=== PATIENT | male | born 1985 | race Caucasian/White ===

== ENCOUNTER 2019-06-28 18:29 | Emergency (ER) | payer BC, OTHER ==
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
[2019-06-28 18:47] VITALS: BP 140/73; PULSE 93; O2SAT 98
[2019-06-28] MEDS ORDERED: Adacel Vial IM ONE ×2 (19:21→19:56)
[2019-06-28] MEDS ORDERED: ZOFRAN ODT 4 MG PO ONE (19:40)
[2019-06-28] MEDS ORDERED: Hydromorphone 1 mg/ml Ampule IM ONE (19:40)
[2019-06-28] MEDS ORDERED: ZOFRAN ODT 4 MG ONE (19:55)
[2019-06-28] MEDS ORDERED: Hydromorphone 1 mg/ml Ampule ONE (19:56)
[2019-06-28] MEDS ORDERED: PERCOCET TABLET 5/325MG PO STA (20:29)
[2019-06-28] MEDS ORDERED: PERCOCET TABLET 5/325MG ONE (20:41)
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
== END 2019-06-28 20:58 | disposition home or self-care (01) ==
LOC: ED 18:29
DX: S00.91XA Abrasion of unspecified part of head, initial encounter (principal); S30.810A Abrasion of lower back and pelvis, initial encounter; V28.0XXA Motorcycle driver injured in noncollision transport accident in nontraffic accident, initial encounter; R51 Headache; M54.2 Cervicalgia; M54.9 Dorsalgia, unspecified; S00.93XA Contusion of unspecified part of head, initial encounter; M25.561 Pain in right knee
CPT/HCPCS: 70450; 72125; 72131; 73562; 90471; 90715; 96372; 99284; J1170; Q0162; A9270-GY

== ENCOUNTER 2023-11-26 20:25 | Emergency (ER) | payer OTHER ==
[2023-11-26 20:46] VITALS: TEMP 97.9; O2SAT 94
[2023-11-26] MEDS: TORAdol 30 mg Injection IM ONE (21:20)
[2023-11-26] MEDS ORDERED: TORAdol 30 mg Injection ONE (21:20)
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
[2023-11-26 22:14] VITALS: BP 133/64; PULSE 76; RESP 17
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
== END 2023-11-26 22:15 | disposition home or self-care (01) ==
LOC: ED 20:25
DX: S63.502A Unspecified sprain of left wrist, initial encounter (principal); S63.92XA Sprain of unspecified part of left wrist and hand, initial encounter; M79.642 Pain in left hand; M25.532 Pain in left wrist; M79.632 Pain in left forearm; W19.XXXA Unspecified fall, initial encounter
CPT/HCPCS: 73110; 73130; 96372; 99283; A4570; J1885